=== PATIENT | female | born 1980 | race Caucasian/White ===

== ENCOUNTER 2019-01-29 10:34 | Emergency (ER) | payer BC ==
[~2019-01-29] VITALS: Ht 160 cm; Wt 54.5 kg
[2019-01-29 10:46] VITALS: BP 101/65
== END 2019-01-29 11:21 | disposition home or self-care (01) ==
LOC: ER 10:35
DX: S93.502A Unspecified sprain of left great toe, initial encounter (principal); G89.29 Other chronic pain; Z88.0 Allergy status to penicillin; Z88.8 Allergy status to other drugs, medicaments and biological substances; X50.9XXA Other and unspecified overexertion or strenuous movements or postures, initial encounter; Y93.89 Activity, other specified; Y92.89 Other specified places as the place of occurrence of the external cause; Y99.8 Other external cause status
CPT/HCPCS: 73630; 99284

== ENCOUNTER 2021-09-04 05:37 | Emergency (ER) | payer BC, OTHER ==
[~2021-09-04] VITALS: Ht 162.6 cm; Wt 50.0 kg
[2021-09-04 05:43] VITALS: BP 112/56
[2021-09-04 06:51] LABS: CLARITY,URINE CLOUDY (Clear); COLOR,URINE YELLOW (Yellow); PH,URINE 8.5 (4.8-8.0); UA COLLECTION TYPE CLN CATCH MIDSTREAM
[2021-09-04 06:52] LABS: GLUCOSE, URINE NEGATIVE (Neg); KETONES,URINE NEGATIVE (Neg); LEUKOCYTE ESTERASE ,URINE MODERATE (Neg); NITRITES, URINE NEGATIVE (Neg); OCCULT BLOOD,URINE MODERATE (Neg); PROTEIN,URINE 30 mg/dl (Neg); UROBILINOGEN,URINE 0.2 E.U/dL (0.2-1.0)
[2021-09-04 06:58] LABS: SQUAMOUS EPITHELIAL CELL,UR FEW /LPF (FEW)
[2021-09-04 06:59] LABS: BACTERIA,URINE FEW /HPF (Neg)
[2021-09-04 07:01] LABS: MUCUS STRANDS FEW /LPF (Neg); WBC,URINE 50-100 /HPF (0-4)
[2021-09-04 07:06] LABS: RENAL CELLS, URINE FEW /HPF
[2021-09-04] MEDS ORDERED: LEVO500T89 PO (07:32)
[2021-09-04] MEDS ORDERED: levoFLOXACIN 250mg tablet PO ONE (07:35)
== END 2021-09-04 08:16 | disposition home or self-care (01) ==
LOC: ER 05:37
DX: N39.0 Urinary tract infection, site not specified (principal); R30.0 Dysuria; G89.29 Other chronic pain; Z87.440 Personal history of urinary (tract) infections; Z98.890 Other specified postprocedural states; Z88.0 Allergy status to penicillin; Z88.2 Allergy status to sulfonamides; Z88.8 Allergy status to other drugs, medicaments and biological substances; Z79.2 Long term (current) use of antibiotics
CPT/HCPCS: 81001; 87077; 87088; 87186; 99283

== ENCOUNTER 2021-09-15 12:27 | Emergency (ER) | payer BC ==
[~2021-09-15] VITALS: Ht 157.5 cm; Wt 54.5 kg
[2021-09-15 13:05] VITALS: BP 112/59
[2021-09-15 14:17] LABS: BASOPHILS % (AUTO) 0.7 % (0-1); EOSINOPHILS # (AUTO) 0.1 X10'3 (0-0.9); EOSINOPHILS % (AUTO) 1.4 % (0-6); HEMATOCRIT 38.9 % (35.0-45.0); LYMPHOCYTES # (AUTO) 0.8 X10'3 (1.1-4.8); LYMPHOCYTES % (AUTO) 20.7 % (21-51); MEAN CORPUSCULAR HEMOGLOBIN 29.2 PG (27.0-31.0); MEAN CORPUSCULAR HGB CONC 33.3 g/dL (33.0-36.5); MEAN CORPUSCULAR VOLUME 87.7 FL (78-98); MEAN PLATELET VOLUME 8.8 FL (7.4-10.4); MONOCYTES # (AUTO) 0.4 X10'3 (0-0.9); MONOCYTES % (AUTO) 9.6 % (2-12); NEUTROPHILS # (AUTO) 2.7 X10'3 (1.8-7.7); NEUTROPHILS % (AUTO) 67.6 % (42-75); PLATELET COUNT 175 X10'3 (140-440); RED BLOOD COUNT 4.44 X10'6 (4.20-5.60); RED CELL DISTRIBUTION WIDTH 13.4 % (11.5-14.5); WHITE BLOOD COUNT 3.9 X10'3 (4.5-11.0)
[2021-09-15 14:29] LABS: ALANINE AMINOTRANSFERASE 21 U/L (12-78); ALKALINE PHOSPHATASE 59 IU/L (46-116); ANION GAP 9 (8-16); ASPARTATE AMINO TRANSFERASE 24 U/L (10-37); BILIRUBIN,TOTAL 0.3 MG/DL (0.1-1.0); BLOOD UREA NITROGEN 11 MG/DL (7-18); BUN/CREATININE RATIO 14.9 (6.6-38.0); CALCIUM 8.7 MG/DL (8.5-10.1); CHLORIDE 102 MMOL/L (99-107); CREATININE 0.74 MG/DL (0.40-0.90); GLUCOSE 102 MG/DL (70-104); LIPASE 63 U/L (73-393); POTASSIUM 3.7 MMOL/L (3.5-5.1); SODIUM 140 MMOL/L (135-145); TOTAL CARBON DIOXIDE 29.4 MMOL/L (24-32); TOTAL PROTEIN 7.9 G/DL (6.4-8.2); eGFR 87 ML/MIN
== END 2021-09-15 14:50 | disposition home or self-care (01) ==
LOC: ER 12:27 → EEVIPCON 12:27 → ER 14:50
DX: U07.1 COVID-19 (principal); G89.29 Other chronic pain; Z87.440 Personal history of urinary (tract) infections; Z98.890 Other specified postprocedural states; Z88.0 Allergy status to penicillin; Z88.2 Allergy status to sulfonamides; Z88.8 Allergy status to other drugs, medicaments and biological substances
CPT/HCPCS: 36415; 71045; 80053; 83690; 85025; 87635; 93005; 99285; C9803

== ENCOUNTER 2022-04-09 09:41 | Day surgery (SDC) | payer BC, OTHER ==
[2022-04-03 11:15] LABS: BASOPHILS % (AUTO) 0.8 % (0-1); EOSINOPHILS # (AUTO) 0.1 X10'3 (0-0.9); EOSINOPHILS % (AUTO) 1.3 % (0-6); LYMPHOCYTES # (AUTO) 1.3 X10'3 (1.1-4.8); LYMPHOCYTES % (AUTO) 21.7 % (21-51); MEAN CORPUSCULAR HEMOGLOBIN 28.3 PG (27.0-31.0); MEAN CORPUSCULAR HGB CONC 32.4 g/dL (33.0-36.5); MEAN CORPUSCULAR VOLUME 87.4 FL (78-98); MEAN PLATELET VOLUME 8.4 FL (7.4-10.4); MONOCYTES # (AUTO) 0.5 X10'3 (0-0.9); MONOCYTES % (AUTO) 8.3 % (2-12); NEUTROPHILS # (AUTO) 4.1 X10'3 (1.8-7.7); NEUTROPHILS % (AUTO) 67.9 % (42-75); PRE OP HEMATOCRIT 39.1 % (35.0-45.0); PRE OP HEMOGLOBIN 12.7 g/dL (12.0-16.0); PRE OP PLATELET COUNT 237 X10'3 (140-440); RED BLOOD COUNT 4.47 X10'6 (4.20-5.60); RED CELL DISTRIBUTION WIDTH 13.1 % (11.5-14.5)
[2022-04-03 11:24] LABS: PRE OP INR 1.1 INR; PRE OP PROTIME 11.2 SECONDS (9.0-12.0)
[2022-04-03 11:27] LABS: ALBUMIN 4.2 G/DL (3.4-5.0); ALBUMIN/GLOBULIN RATIO 1.1 (1.1-1.5); ALKALINE PHOSPHATASE 64 IU/L (46-116); BLOOD UREA NITROGEN 9 MG/DL (7-18); BUN/CREATININE RATIO 11.1 (6.6-38.0); CALCIUM 8.9 MG/DL (8.5-10.1); CHLORIDE 105 MMOL/L (99-107); CREATININE 0.81 MG/DL (0.40-0.90); PRE OP ALT 22 U/L (30-65); PRE OP ANION GAP 7 (8-16); PRE OP AST 19 U/L (10-37); PRE OP BILIRUB, TOTAL 0.5 MG/DL (0.0-1.0); PRE OP GLUCOSE 87 MG/DL (70-104); PRE OP POTASSIUM 3.8 MMOL/L (3.4-5.1); PRE OP SODIUM 139 MMOL/L (135-145); TOTAL PROTEIN 7.9 G/DL (6.4-8.2); eGFR 78 ML/MIN
[2022-04-03 11:30] LABS: HCG SERUM QL NEGATIVE
[~2022-04-09] VITALS: Ht 157.5 cm; Wt 53.5 kg
[2022-04-09] VITALS (14 sets, daily range): BP systolic 113–125; BP diastolic 64–80
[~2022-04-09 09:41] MED LIST: LIDOcaine 1% W/epiNEPHrine 1:100,000 20ml vial ONE; LYSI100013 PO; MAGN100T PO; VITC500T PO; cocaine 4% topical solution 4ml bottle ONE; diazepam 5mg tablet PO ONE; famotidine 20mg tablet PO ONE; mupirocin 2% ointment 22GM ONE; oxymetazoline 15 ML nasal spray NS ONE; ringers solution, lacted 1,000 ML IV SCH
--- NOTE | 2022-04-09 09:55 | NUR ---
PT PREPPED FOR SURGERY, IV STARTED IN RIGHT HAND WITHOUT DIFFICULTY, PT STATES SHE IS SENSITIVE TO SEDATION AND IS PRONE TO MAUSEA AND VOMITTING, PTS PURSE TAKEN BY CELL PHONE AND CLOTHES REMAIN WITH PATIENT.
[2022-04-09] MEDS: oxymetazoline 15 ML nasal spray NS ONE ×2 (10:59→13:33)
[2022-04-09] MEDS ORDERED: fentaNYL/PF 50MCG/1 ML 2ML syringe ONE (12:49)
[2022-04-09] MEDS ORDERED: midazolam 1 mg/ML 2ml injection ONE (12:50)
[2022-04-09] MEDS ORDERED: sevoflurane 250ml liquid IH ONE (13:06)
[2022-04-09] MEDS ORDERED: propofol inj 20 ML IV ONE (13:19)
[2022-04-09] MEDS ORDERED: meperidine/PF 25mg/ml syringe IV PRN ×3 (13:40)
[2022-04-09] MEDS ORDERED: morphine 4 MG/ML inj SYRINge IV PRN (13:40)
[2022-04-09] MEDS ORDERED: ondansetron/PF 4mg/2ml inj IV PRN (13:40)
[2022-04-09] MEDS ORDERED: proCHLORperazine 10 MG/2 ml inj IV PRN (13:40)
[2022-04-09] MEDS ORDERED: ringers solution, lacted 1,000 ML IV SCH (13:40)
[2022-04-09] MEDS ORDERED: morphine 2 MG/ML inj. syringe IV PRN (13:40)
[2022-04-09] MEDS ORDERED: dexamethasone sod phosphate 4mg/ml inj. ONE (14:45)
[2022-04-09] MEDS ORDERED: ondansetron/PF 4mg/2ml inj ONE (14:45)
--- NOTE | 2022-04-09 15:08 | NUR ---
Received from OR via [facility] , accompanied by Anesthesiologist CHRISTOPH and report given by Anesthesiolgist. PATIENT WITH 20G PIV IN RIGHT UE RUNNING LR AT 100. DENIES PA8IN AT THIS TIME. PATIENT WITH NASTAL PACKING TO BILATERAL NARES. NO DRAINAGE LEAKING. 10L MASK ON WITH 100% SATURATIONS. VSS AT THIS TIME AND ANG ECHEVERRIA FOR PATIENT COMFORT. Addendum: 04/09/22 at 1520 by Nilo Bhat RN, RN Amended: Links added.
[2022-04-09] MEDS ORDERED: salt irrigation nasal spray 45 ML SPRAY NS SCH (16:25)
--- NOTE | 2022-04-09 17:19 | NUR ---
ALL DC CRITERIA HAS BEEN MET FOR HOME. PATIENT TAKING PO FLUIDS. VSS. PAIN AT A TOLERABLE LEVEL. PATIENT TOOK A PAIN MED THAT WAS PRESCRIBED PRE OP PRIOR TO DC. DID NOT WISH FOR IV MEDS . PATIENT TAKEN DOWN IN WHEELCHAIR TO PERSONAL VEHICLE WHERE SPOUSE CHIQUITA AND PATIENT WERE EDUCATED ON INSTRUCTIONS. PATIENT HAD EMESIS UPON LEAVING. STATES THAT SHE IS "FINE" AND PROCEEDED HOME UNDER THE CARE OF HER SPOUSE. Addendum: 04/09/22 at 1723 by Nilo Spaulding - BERTHA STONE Amended: Links added.
== END 2022-04-09 17:19 | disposition home or self-care (01) ==
LOC: PAS 09:41
PROVIDERS: ATTEND Otolaryngology
DX: J34.2 Deviated nasal septum (principal); J34.3 Hypertrophy of nasal turbinates; J32.8 Other chronic sinusitis; J34.89 Other specified disorders of nose and nasal sinuses; J33.8 Other polyp of sinus; G47.30 Sleep apnea, unspecified; Z20.822 Contact with and (suspected) exposure to COVID-19; Z79.01 Long term (current) use of anticoagulants; Z79.899 Other long term (current) drug therapy; Z98.890 Other specified postprocedural states; Z86.19 Personal history of other infectious and parasitic diseases; Z88.0 Allergy status to penicillin; Z88.2 Allergy status to sulfonamides; Z88.8 Allergy status to other drugs, medicaments and biological substances
CPT/HCPCS: 30140; 30520; 31240; 31259; 31267; 31276; 36415; 61782; 80053; 82948; 84703; 85025; 85576; 85610; 85730; 87635; A6402; C9250; C9803; J1100; J2175; J2250; J2405; J2704; J3010; J3490; J7030; J7040; J7120; U0003; U0005; Z7506; Z7508; Z7512; A4618; A7000